=== PATIENT | female | born 1985 | race Two or more races ===

== ENCOUNTER 2020-11-04 01:08 | Emergency (ER) | payer BC, OTHER ==
[~2020-11-04] VITALS: Ht 160 cm; Wt 109.0 kg
[~2020-11-04 01:08] MED LIST: CYCL-1 PO; PHEN-786 PO
[2020-11-04 01:13] VITALS: BP 160/101
[2020-11-04] MEDS ORDERED: PRED20TA PO (01:29)
[2020-11-04] MEDS ORDERED: dexamethasone 4mg tablet PO ONE (01:30)
[2020-11-04] MEDS ORDERED: famotidine 20mg tablet PO ONE (01:30)
--- NOTE | 2020-11-04 01:32 | NUR ---
patients airway intact no observable s/s of acute respiratory distress at this time will continue to monitor
--- NOTE | 2020-11-04 02:05 | NUR ---
provided patient emesis bag verbalized "feeling like i am going to throw up."
== END 2020-11-04 03:54 | disposition home or self-care (01) ==
LOC: ER 01:08
DX: L27.2 Dermatitis due to ingested food (principal); R06.02 Shortness of breath; R11.2 Nausea with vomiting, unspecified; R42 Dizziness and giddiness; J45.909 Unspecified asthma, uncomplicated; Z79.899 Other long term (current) drug therapy
CPT/HCPCS: 99283